=== PATIENT | male | born 1970 | race Caucasian/White ===

== ENCOUNTER 2020-09-18 21:39 | Emergency (ER) | payer BC ==
--- NOTE | 2020-09-18 21:47 | EDM.PDOC ---
<Dee Dee Clark - Last Filed: 09/18/20 22:36> ED HPI GENERAL MEDICAL PROBLEM - General Chief Complaint: Upper Extremity Injury/Pain Stated Complaint: FINGER INJURY Time Seen by Provider: 09/18/20 21:47 - Related Data Allergies Allergy/AdvReac Type Severity Reaction Status Date / Time Penicillins Allergy Rash Verified 09/18/20 21:52 Home Meds: Home Meds Omeprazole Magnesium [Prilosec Otc] 20 mg PO DAILY PRN 09/18/20 [History] Sulfamethoxazole/Trimethoprim [Bactrim Ds Tablet] 1 each PO BID #14 tablet 09/18/20 [Rx] ED TRAUMA EXTREMITY PROCEDURES - Laceration/Wound Repair Left Digit - 4th (Ring) Lac/Wound Length In cm: 2.5 Appearance: Subcutaneous Distal NVT: Neuro & Vascular Intact Anesthetic Type: Local Local Anesthesia - Lidocaine (Xylocaine): 1% Plain Local Anesthetic Volume: 5cc Closed With: Sutures Suture Size: 3-0 # of Sutures: 8 Suture Type: Nylon, Interrupted Departure - Departure Disposition: Home, Self-Care 01 Clinical Impression: Injury, crush, finger, Finger laceration, Open fracture of distal phalangeal tuft with routine healing - Discharge Information Prescriptions: Sulfamethoxazole/Trimethoprim [Bactrim Ds Tablet] 1 each PO BID #14 tablet Referrals: PCP,None [Primary Care Provider] - Forms: ED Department Discharge Additional Instructions: Return to the emergency room with any questions problems or worsening symptoms. Take the antibiotics, this is Bactrim DS 1 twice daily until all gone. Suture removal in 12 days. Wear the splint for the next 7 or 8 days. Keep the area absolutely clean and dry for the next 48 hours. After 48 hours you can let water gently run over the area but only for a brief period of time, 15 to 20 seconds. No scrubbing and then gently dab dry. Follow-up in the clinic for suture removal in 12 days. If you do not have a regular provider you can follow-up at the hospital clinic. Their phone number is [phone] <Braden Vela - Last Filed: 09/18/20 22:51> ED HPI GENERAL MEDICAL PROBLEM - History of Present Illness INITIAL COMMENTS - FREE TEXT/NARRATIVE: 50-year-old male presents the emergency room with a left ring finger injury. Rounds o'clock this afternoon patient was working with some flat steel he dropped a piece and landed on his finger. He was wearing leather gloves. But he has a large laceration towards the tip of the finger. Patient denies any other injury with this most unfortunate event. Patient is not certain when his last tetanus shot was. Left Finger-Ring Pain Score (Numeric/FACES): 5 Review of Systems - Review of Systems Review Of Systems: See Below Constitutional: Reports: No Symptoms Respiratory: Reports: No Symptoms Cardiovascular: Reports: No Symptoms GI/Abdominal: Reports: No Symptoms ED EXAM, GENERAL - Physical Exam Exam: See Below Exam Limited By: No Limitations General Appearance: Alert, No Apparent Distress Respiratory/Chest: No Respiratory Distress, Lungs Clear, Normal Breath Sounds Cardiovascular: Regular Rate, Rhythm, No Edema, No Murmur Extremities: Other (Examination of the left hand shows a fourth finger distal curvilinear laceration. The nail plate appears to be intact. Patient appears to have intact flexion and extension at the DIPJ however is limited by some discomfort at the tip. He has some numbness over the palmar aspect of the digit distal to the DIPJ and again this is noted on the radial and ulnar aspects of the distal end) Course - Vital Signs Last Recorded V/S: Last Vital Signs Temp 36.2 C 09/18/20 21:49 Pulse 60 09/18/20 21:49 Resp 17 09/18/20 21:49 BP 144/88 H 09/18/20 21:49 Pulse Ox 97 09/18/20 21:49 - Orders/Labs/Meds Orders: Active Orders 24 hr Category Date Time Status Vaccines to be Administered [RC] PER UNIT ROUTINE Care 09/18/20 21:57 Active Fingers Fourth Digit Lt F3 [CR] Stat Exams 09/18/20 21:53 Taken Meds: Medications Discontinued Medications Generic Name Dose Route Start Last Admin Trade Name Freq PRN Reason Stop Dose Admin Diphtheria/Tetanus/Acell Pertussis 0.5 ml 09/18/20 21:55 09/18/20 22:15 Boostrix IM 09/18/20 21:56 0.5 ml .ONCE ONE Administration Lidocaine HCl 10 ml 09/18/20 22:10 09/18/20 22:15 Xylocaine 1% INJECT 09/18/20 22:11 10 ml ONETIME ONE Administration Trimethoprim/Sulfamethoxazole 1 tab 09/18/20 21:54 09/18/20 22:15 Septra Ds PO 09/18/20 21:55 1 tab ONETIME ONE Administration - Re-Assessments/Exams Free Text/Narrative Re-Assessment/Exam: 09/18/20 22:40 Had primary repair done of the laceration after reviewing his x-rays. He had very good approximation of his laceration. X-ray did show a distal tuft fracture. The patient started on Bactrim DS and will remain on this as an outpatient.. We will splint his finger for comfort and to help protect the end. Departure - Departure Time of Disposition: 22:41 Sepsis Event Note (ED) - Focused Exam Vital Signs: Vital Signs Temp Pulse Resp BP Pulse Ox 09/18/20 21:49 36.2 C 60 17 144/88 H 97 - My Orders Last 24 Hours: My Active Orders 09/18/20 21:53 Fingers Fourth Digit Lt F3 [CR] Stat 09/18/20 21:57 Vaccines to be Administered [RC] PER UNIT ROUTINE - Assessment/Plan Last 24 Hours: My Active Orders 09/18/20 21:53 Fingers Fourth Digit Lt F3 [CR] Stat 09/18/20 21:57 Vaccines to be Administered [RC] PER UNIT ROUTINE
[2020-09-18] MEDS ORDERED: Sulfamethoxazole/Trimethoprim 800-160 MG Tab PO ONE (21:54)
[2020-09-18] MEDS ORDERED: Diphtheria,Pertussis(Acell),Tetanus Vaccine 0.5 ML Syringe IM ONE (21:55)
[2020-09-18] MEDS ORDERED: Lidocaine 1% 10 ML MDV INJECT ONE (22:10)
--- NOTE | 2020-09-19 10:37 | CR ---
Left fourth finger: 3 views of the left fourth finger were obtained. Comparison: No previous finger study or hand study. Fracture is identified within the tuft of the distal phalanx. Minimal displacement is seen. Diffuse soft tissue swelling is noted. No acute proximal bony abnormality is appreciated. Impression: 1. Slightly displaced tuft fracture within the distal fourth finger. 2. Soft tissue swelling. Diagnostic code #3
== END 2020-09-18 23:00 | disposition home or self-care (01) ==
LOC: JD.ED 21:39
DX: S67.195A Crushing injury of left ring finger, initial encounter (principal); S62.635B Displaced fracture of distal phalanx of left ring finger, initial encounter for open fracture; Z88.0 Allergy status to penicillin; Z23 Encounter for immunization; W23.0XXA Caught, crushed, jammed, or pinched between moving objects, initial encounter
CPT/HCPCS: 12001; 73140; 90471; 90715; 99283; A9270